=== PATIENT | male | born 1970 | race Caucasian/White ===

== ENCOUNTER 2024-12-09 17:09 | Inpatient (IN) | payer OTHER, SELFPAY ==
[2024-12-09] VITALS (17 sets, daily range): BP systolic 101–156; BP diastolic 75–98; PULSE 63–85; TEMP 36.4–36.9; O2SAT 95–100; BMI 30.4; BMI 30.9
--- NOTE | 2024-12-09 17:17 | XR_ITS ---
[facility] [place] [id number] Patient Name: MARLENY PATRICK MRN: [id number] date: 1970 Sex: M Assigned Patient Location: ED.MAIN Current Patient Location: ED.MAIN Accession/Order Number: [id number] Exam Date: 12/09/2024 17:48 Report Date: 12/09/2024 17:50 At the request of: TRACI WELLS MD Procedure: XR chest 1V Plain film chest Single view HISTORY: Shortness of breath COMPARISON: None FINDINGS: SUPPORT DEVICES: None POSTSURGICAL CHANGES: None HEART: Within normal limits PULMONARY JESUS MANUEL: Within normal limits MEDIASTINUM: Unremarkable LUNGS AND PLEURA: No acute lung process, pleural effusion or pneumothorax identified. BONY STRUCTURES: Intact ADDITIONAL FINDINGS None XR/XR chest 1V IMPRESSION: No acute process. Impression dictated by: Magnus Hills M.D. 12/09/2024 5:50 PM Dictation [facility] Electron[facility] authenticated by: [id number] Y Date: 12/09/2024 17:50
--- NOTE | 2024-12-09 17:17 | ECG_ITS ---
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 Measurements Intervals [place] Rate: 82 P: 46 LA: 130 QRS: 51 QRSD: 78 T: 59 QT: 370 QTc: 408 Interpretive Statements 1100 Sinus rhythm 9110 normal ECG No previous ECG available for comparison Electronically Signed On 12-10-2024 19:25:18 EDT by JANET HAMMOND M.D.
--- NOTE | 2024-12-09 17:18 | ED.GENADUL1 ---
HPI HPI - General Adult General Chief complaint: Shortness of Breath/Dyspnea Stated complaint: SOB Time Seen by Provider: 12/09/24 17:10 History of Present Illness HPI narrative: 54-year-old male presented to the emergency department for generalized weakness. His symptoms started 2 hours ago. He was outside mowing in the hot environment. He had drink a glass of water while mowing and then he drank a glass of water afterwards. His tried to give him some Propel but he was having trouble drinking it. He does not complain of any localized weakness or headache. No vomiting. Related Data Home Medications ?Medication ?Instructions ?Recorded ?Confirmed celecoxib 200 mg capsule 200 mg PO Q24H 12/09/24 12/09/24 gabapentin 300 mg capsule 600 mg PO DAILY 12/09/24 12/09/24 losartan 50 mg tablet 50 mg PO DAILY 12/09/24 12/09/24 pantoprazole 40 mg tablet,delayed 40 mg PO DAILY 12/09/24 12/09/24 release secukinumab 150 mg/mL subcutaneous mg subcut 12/09/24 pen injector (Cosentyx Pen 300 mg/2 pens () Allergies Allergy/AdvReac Type Severity Reaction Status Date / Time erythromycin base Allergy Unknown Verified 12/09/24 17:16 Penicillins Allergy Unknown Verified 12/09/24 17:16 Review of Systems ROS Narrative A ten point review of systems is negative except as noted above. PFSH PFSH Social History Little interest or pleasure in doing things: not at all Feeling down, depressed, or hopeless: not at all Exam Narrative Exam Narrative: Nurses note and vital signs reviewed and patient is not hypoxic. General: The patient appears weak. His face is mildly flushed. Skin: Warm, dry, no pallor noted. There is no rash noted. Head: Normocephalic, atraumatic Eye: Normal conjunctiva, no drainage Ears, Nose, Mouth, and Throat: oral mucosa is mildly dry. Nares patent. Cardiovascular: Regular Rate and Rhythm Respiratory: Patient is in no distress, no accessory muscle use, lungs are clear to auscultation, no wheezing, rales or rhonchi Back: non-tender GI: Soft and nontender Musculoskeletal: The patient has no evidence of calf tenderness, no pitting edema, symmetrical pulses noted bilaterally Neurological: A&O x4, normal speech; upper and lower extremity strength is 4 out of 5 and symmetric in all muscle groups. Cranial nerves II through XII intact Psychiatric: Cooperative Constitutional Vital Signs, click to edit/add: Last Vital Signs Temp 98.5 F 12/09/24 17:19 Pulse 72 12/09/24 17:50 Resp 16 12/09/24 17:50 BP 124/79 12/09/24 17:46 Pulse Ox 99 12/09/24 17:50 O2 Del Method Room Air 12/09/24 17:19 Course Vital Signs Vital signs: Vital Signs Pulse Rate 80 12/09/24 17:14 Respiratory Rate 22 H 12/09/24 17:14 Pulse Oximetry 100 12/09/24 17:14 Temperature 98.5 F 12/09/24 17:19 Pulse Rate 72 12/09/24 17:50 Respiratory Rate 16 12/09/24 17:50 Blood Pressure 124/79 12/09/24 17:46 Pulse Oximetry 99 12/09/24 17:50 Oxygen Delivery Method Room Air 12/09/24 17:19 Medical Decision Making [facility] Narrative Medical decision making narrative: The patient was found to be in rhabdomyolysis with mild acute kidney injury and hyperkalemia at 6.4. He was given IV fluids and he was also given D50 and insulin for the hyperkalemia. EKG, showed no acute findings. He is feeling somewhat better. He has not febrile and he is not tachycardic or hypotensive and is being admitted. Treatment diagnosis and disposition were discussed with the patient and his . Differential Diagnosis Differential Diagnosis: Heat exhaustion, dehydration, acute kidney injury Lab Data Lab results reviewed: Yes I reviewed the patient's lab results Labs: Lab Results 12/09/24 12/09/24 Range/Units 17:24 17:27 WBC 18.3 H (4.0-11.0) 10^3/uL RBC 4.91 (4.70-6.10) 10^6/uL Hgb 15.9 (14.0-18.0) g/dL Hct 44.3 (42.0-54.0) % MCV 90.2 (80.0-94.0) fL MCH 32.4 (25.9-34.0) pg MCHC 35.9 H (29.9-35.2) g/dL RDW 12.4 (11.0-15.0) % Plt Count 261 (150-450) 10^3/uL MPV 10.7 (9.5-13.5) fL Neut % (Auto) 80.9 H (43.0-75.0) % Lymph % (Auto) 13.7 L (20.5-60.0) % [place] % (Auto) 4.4 (1.7-12.0) % Eos % (Auto) 0.2 L (0.9-7.0) % Baso % (Auto) 0.3 (0.2-2.0) % Neut # (Auto) 14.8 H (1.4-6.5) 10^3/uL Lymph # (Auto) 2.5 (1.2-3.8) 10^3/uL [place] # (Auto) 0.8 (0.3-0.8) 10^3/uL Eos # (Auto) 0.0 (0.0-0.7) 10^3/uL Baso # (Auto) 0.1 (0.0-0.1) 10^3/uL Abs Immat Gran (auto) 0.10 H (0.00-0.03) 10^3/uL Imm/Tot Granulo (auto) 0.5 (0.0-0.5) % Sodium 136 (136-145) mmol/L Potassium 6.4 H* (3.5-5.1) mmol/L Chloride 96 L (98-107) mmol/L Carbon Dioxide 22.3 (21.0-32.0) mmol/L Anion Gap 24.1 BUN 26.0 H (7.0-18.0) mg/dL Creatinine 2.50 H (0.70-1.30) mg/dL Est GFR ( Amer) 33 L (>=60 mL/min/1.73m^2) Est GFR (Non-Af Amer) 27 L (>=60 mL/min/1.73m^2) BUN/Creatinine Ratio 10.4 Glucose 180 H (74-106) mg/dL Calcium 10.6 H (8.5-10.1) mg/dL Total Creatine Kinase 406 H* (39-308) U/L Myoglobin 563 H* (16-96) ng/mL POC Glucose 173 H (74-106) mg/dL Imaging Data Chest x-ray: Radiologist's impression: ITS Impressions Chest X-Ray 12/09/24 17:17 IMPRESSION: No acute process. Impression dictated by: Magnus Hills M.D. 12/09/2024 5:50 PM Dictation Location[facility] Electronically authenticated by: [id number] Y Date: 12/09/2024 17:50 ECG Data Attestation: I personally reviewed and interpreted this ECG as follows: (EKG on my interpretation shows sinus rhythm with rate of 82 and no acute change) Critical Care Time Critical Care Time Critical Care Time: Yes Total Critical Care Time: 35 Attestation: Due to the high probability of sudden and clinically significant deterioration in the patient's condition he/she required the highest level of my preparedness to intervene urgently I provided critical care time including documentation time, medication orders and management, reevaluation, vital sign assessment, ordering and reviewing of lab tests, ordering and reviewing of x-ray studies, and admission orders. Aggregate critical care time is 35 minutes including only time during which I was engaged in work directly related to his/her care and did not include time spent treating other patients simultaneously. Discharge Plan Discharge Chief Complaint: Shortness of Breath/Dyspnea Clinical Impression: Rhabdomyolysis, Acute kidney injury, Hyperkalemia, Heat exhaustion Patient Disposition: Admitted As Inpatient Time of Disposition Decision: 18:08 Condition: Fair
[2024-12-09] MEDS: 0.9 % SODIUM CHLORIDE 1,000 ML 1000 ML IV ×2 (17:20→18:18)
[2024-12-09 17:34] LABS: Hematocrit 44.3 % (42.0-54.0); Hemoglobin 15.9 g/dL (14.0-18.0); Immature Granulocytes Abs Auto 0.10 10^3/uL (0.00-0.03); Immature Granulocytes Pct Auto 0.5 % (0.0-0.5); Lymphocytes Absolute Auto 2.5 10^3/uL (1.2-3.8); Mean Corpuscular HGB Conc 35.9 g/dL (29.9-35.2); Mean Corpuscular Hemoglobin 32.4 pg (25.9-34.0); Mean Corpuscular Volume 90.2 fL (80.0-94.0); Platelet Count 261 10^3/uL (150-450); Red Blood Count 4.91 10^6/uL (4.70-6.10); White Blood Count 18.3 10^3/uL (4.0-11.0)
[2024-12-09 17:55] LABS: Anion Gap 24.1; Blood Urea Nitrogen 26.0 mg/dL (7.0-18.0); Calcium 10.6 mg/dL (8.5-10.1); Carbon Dioxide 22.3 mmol/L (21.0-32.0); Chloride 96 mmol/L (98-107); Estimated GFR (African America 33 (>=60 mL/min/1.73m^2); Estimated GFR (Non-African Ame 27 (>=60 mL/min/1.73m^2); Glucose 180 mg/dL (74-106); Sodium 136 mmol/L (136-145)
[2024-12-09 17:58] LABS: Creatine Kinase 406 U/L (39-308); Potassium 6.4 mmol/L (3.5-5.1)
[2024-12-09] MEDS: DEXTROSE 50 %-WATER 25 GM/50 ML SYRINGE IV (18:16)
[2024-12-09] MEDS: INSULIN REGULAR, HUMAN (100 UNIT/ML) 10 ML MDV 10 UNIT IV (18:17)
[2024-12-09 19:11] LABS: Alanine Aminotransferase 47 U/L (16-63); Albumin Globulin Ratio 1.2; Albumin Level 5.3 g/dL (3.4-5.0); Alkaline Phosphatase 74 U/L (46-116); Aspartate Amino Transferase 43 U/L (15-37); Globulin 4.6 g/dL; Total Protein 9.9 g/dL (6.4-8.2)
[2024-12-09] MEDS: CALCIUM GLUC IN NACL, ISO-OSM 1 GM/50 ML PLAST..BAG IV (20:14)
[2024-12-09] MEDS: 0.9 % SODIUM CHLORIDE 1,000 ML 125 ML IV (20:15)
[2024-12-09] MEDS: ENOXAPARIN SODIUM 30 MG/0.3 ML SYRINGE SUBQ (20:15)
[2024-12-09] MEDS: SODIUM ZIRCONIUM CYCLOSILICATE 10 GM POWD.PACK PO (20:16)
[2024-12-09 21:28] LABS: Glucose Urine UA NEGATIVE (NEGATIVE)
[2024-12-09 21:44] LABS: Cast Seen? NONE SEEN #/LPF (NONE SEEN); Crystals Seen? None Seen #/HPF (None Seen); Urine Culture Indicated NO
[2024-12-09 21:44] LABS: Potassium 4.0 mmol/L (3.5-5.1)
[2024-12-10] VITALS (8 sets, daily range): BP systolic 120–142; BP diastolic 71–85; PULSE 59–74; TEMP 36.6–37; O2SAT 94–98
[2024-12-10] MEDS: 0.9 % SODIUM CHLORIDE 1,000 ML 125 ML IV (04:54)
[2024-12-10 05:49] LABS: Hematocrit 36.9 % (42.0-54.0); Hemoglobin 12.7 g/dL (14.0-18.0); Immature Granulocytes Abs Auto 0.02 10^3/uL (0.00-0.03); Immature Granulocytes Pct Auto 0.2 % (0.0-0.5); Lymphocytes Absolute Auto 2.7 10^3/uL (1.2-3.8); Mean Corpuscular HGB Conc 34.4 g/dL (29.9-35.2); Mean Corpuscular Hemoglobin 31.9 pg (25.9-34.0); Mean Corpuscular Volume 92.7 fL (80.0-94.0); Platelet Count 142 10^3/uL (150-450); Red Blood Count 3.98 10^6/uL (4.70-6.10); White Blood Count 10.5 10^3/uL (4.0-11.0)
[2024-12-10 06:08] LABS: Anion Gap 15.1; Blood Urea Nitrogen 19.0 mg/dL (7.0-18.0); Calcium 8.8 mg/dL (8.5-10.1); Carbon Dioxide 24.1 mmol/L (21.0-32.0); Chloride 106 mmol/L (98-107); Estimated GFR (African America >60 (>=60 mL/min/1.73m^2); Estimated GFR (Non-African Ame >60 (>=60 mL/min/1.73m^2); Glucose 84 mg/dL (74-106); Potassium 4.2 mmol/L (3.5-5.1); Sodium 141 mmol/L (136-145)
--- NOTE | 2024-12-10 08:00 | ECG_ITS ---
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 Measurements Intervals [place] Rate: 58 P: 22 SC: 151 QRS: 28 QRSD: 88 T: 24 QT: 441 QTc: 435 Interpretive Statements SINUS BRADYCARDIA POSSIBLE RIGHT VENTRICULAR CONDUCTION DELAY [RSR (QR) IN V1/V2] WARNING: DATA QUALITY MAY AFFECT INTERPRETATION Compared to ECG 12/09/2024 17:14:32 Sinus rhythm no longer present Electronically Signed On 12-10-2024 19:30:20 EDT by JANET HAMMOND M.D.
[2024-12-10 08:55] LABS: Creatine Kinase 332 U/L (39-308)
--- NOTE | 2024-12-10 09:16 | PM.HP ---
HPI H&P: HPI History of Present Illness Chief complaint: SOB, RHABDOMYOLYSIS, CLINT, HYPERKALEMIA, HEAT EXHAU Narrative: Mr. Lane is a 54-year-old gentleman with a history of hypertension and ankylosing spondylitis. He is on Celebrex and losartan. Yesterday, the patient spent about an hour and half in the heat mowing his son yard. Subsequently he felt sick. He reported having muscle ache and cramping. He reported having dyspnea sensation. He could not focus or settle down. He was brought to the emergency room where he was found to have significant kidney failure. Elevation of the CPK. Patient denies any chest pain. No abdominal pain. No nausea or vomiting. Overnight the patient improved this morning the patient is back to baseline state according to him and requesting to be discharged home. No hematemesis or melena. 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 (ICD-10) Spondylitis ?M46.90 - Unspecified inflammatory spondylopathy, site unspecified (ICD-10) Bowel obstruction ?K56.609 - Unspecified intestinal obstruction, unspecified as to partial versus complete obstruction (ICD-10) 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 - Hirschsprung's disease (ICD-10) 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 - Other specified congenital malformation syndromes, not elsewhere classified (ICD-10) ?Q43.1 - Hirschsprung's disease (ICD-10) ?C47.9 - Malignant neoplasm of peripheral nerves and autonomic nervous system, unspecified (ICD-10) Surgical History (Updated 12/09/24 @ 19:37 by Erica Melvin) Hx of spinal surgery ?Z98.890 - Other specified postprocedural states (ICD-10) Family History (Updated 12/09/24 @ 19:39 by Erica Melvin) Other Congestive heart failure Diabetes Hypertension Obesity Social History Highest level of school completed/degree received: Master's degree Little interest or pleasure in doing things: not at all Feeling down, depressed, or hopeless: not at all Meds Home Medications and Allergies Home Medications ?Medication ?Instructions ?Recorded ?Confirmed ?Type celecoxib 200 mg capsule 200 mg PO Q12H 12/09/24 12/09/24 History Held on 12/10/24. Instructions: Resume on 12/14/24. Resume taking it on 12/14 on an as-needed basis only. No more than 1 pill every day or every other day. gabapentin 300 mg capsule 300 mg PO TID 12/09/24 12/09/24 History losartan 50 mg tablet 50 mg PO DAILY 12/09/24 12/09/24 History pantoprazole 40 mg tablet,delayed 40 mg PO .ACB 12/09/24 12/09/24 History release secukinumab 150 mg/mL subcutaneous 300 mg subcut .[id number] 12/09/24 12/09/24 History pen injector (Cosentyx Pen 300 mg/2 pens () Allergies Allergy/AdvReac Type Severity Reaction Status Date / Time erythromycin base Allergy Unknown Verified 12/09/24 17:16 Penicillins Allergy Unknown Verified 12/09/24 17:16 Exam Narrative Exam Narrative: [pt is awake and alert. oriented to place, time and person HEENT: [place] conjunctiva and NL buccal mucosa Neck: Supple, no tenderness Endocrine: No Thyromegaly. Vascular: No JVD or carotid bruit. Lymphatic: No cervical lymphadenopathy. Chest: CTA no DTP. Heart RRR, no extra sound or murmur. Abd: Soft, no tenderness, no rebound and no rigidity. Increase abd girth therefore clinically I could not exclude the possibility of intra abd mass or organomegaly. LE: No cyanosis or clubbing, no varices or edema. Neuro: A A O. Nl speech, comprehension and attention. Nl and symetrical motor and tone examination through out. []] Constitutional Vital Signs, click to edit/add: Last Vital Signs Temp 98.6 F 12/10/24 07:13 Pulse 71 12/10/24 07:50 Resp 18 12/10/24 07:13 BP 142/85 H 12/10/24 07:13 Pulse Ox 98 12/10/24 07:13 O2 Del Method Room Air 12/10/24 07:13 Results Labs Labs: Short CBC 12/09/24 12/10/24 Range/Units 17:24 04:45 WBC 18.3 H 10.5 (4.0-11.0) 10^3/uL Hgb 15.9 12.7 L (14.0-18.0) g/dL Hct 44.3 36.9 L (42.0-54.0) % Plt Count 261 142 L (150-450) 10^3/uL BMP 12/09/24 12/09/24 12/10/24 17:24 21:09 04:45 Sodium 136 141 Potassium 6.4 H* 4.0 4.2 Chloride 96 L 106 Carbon Dioxide 22.3 24.1 BUN 26.0 H 19.0 H Creatinine 2.50 H 1.01 Glucose 180 H 84 Calcium 10.6 H 8.8 Cardiac Enzymes 12/09/24 12/10/24 Range/Units 17:24 04:45 Total Creatine Kinase 406 H* 332 H* (39-308) U/L Liver Function 12/09/24 Range/Units 17:24 Total Bilirubin 1.3 H (0.2-1.0) mg/dL Direct Bilirubin 0.2 (0.0-0.2) mg/dL AST 43 H (15-37) U/L ALT 47 (16-63) U/L Alkaline Phosphatase 74 (46-116) U/L Albumin 5.3 H (3.4-5.0) g/dL Urine 12/09/24 Range/Units 21:17 Urine Color Lt. yellow (YELLOW) Urine Clarity Clear (CLEAR) Urine pH 6.0 (5.0-9.0) Ur Specific [place] <=1.005 A (1.005-1.025) Urine Protein Negative (NEG/TRACE) mg/dL Urine Glucose (UA) Negative (NEGATIVE) mg/dL Assessment and Plan Assessment and Plan (1) Heat exhaustion: (2) Hyperkalemia: (3) Acute kidney injury: (4) Rhabdomyolysis: (5) SIRS (systemic inflammatory response syndrome): Plan Patient was started on IV fluid infusion. Patient also had received the cocktail for hyperkalemia including Lokelma, insulin and calcium gluconate. Complete resolution of hyperkalemia and acute kidney failure. CPK is trending down. Troponin is negative EKG does not show ST elevation or depression. White count is back to normal. Patient is feeling great and requesting to be discharged home. His exam is unremarkable. Patient will follow-up with his primary care doctor tomorrow. He was given instructions to avoid heat exposure. He was instructed not to resume taking Celebrex for a few days then cut down on dose and frequency. He was taken 200 mg twice a day which may be high dose for him. I instructed him not to take more than 1 or 2 on an as-needed basis. Patient has few medical issues as listed above and others that are not listed. All appear to be stable. Patient is feeling great. He is requesting to be discharged home. Is back to baseline state. He is asymptomatic. At this time, I do not have any clear or strong clinical justification to extend inpatient hospitalization. Patient however may require monitoring as well as additional work-up, investigation and therapeutic intervention that could take place from this point on post discharge. That is to prevent relapse, decompensation, rehospitalization and other medical implications. I instructed patient to ask her primary care doctor to obtain [facility] record entirely to address abnormalities seen on labs and imaging that I have and have not addressed during this hospitalization, follow-up on pending blood work, imaging and pathology is if available and to follow-up on needed medical care in the outpatient setting.
--- NOTE | 2024-12-10 09:21 | P.DS_ITS ---
DS: Providers Provider Date of admission: 12/09/24 18:45 Primary care physician: ALFRED MEJÍA DS: Diagnosis Discharge Diagnosis (1) Heat exhaustion: (2) Hyperkalemia: (3) Acute kidney injury: (4) Rhabdomyolysis: (5) SIRS (systemic inflammatory response syndrome): Plan As listed above and others that are not listed DS: Summary Hospital Course Hospital Course: Mr. Brown is a 54-year-old gentleman who spent an hour and a half at least and his son and he ate yesterday morning his son's yard. He came in not feeling well and was found to have the following Acute kidney failure Dehydration with volume loss SIRS Hyperkalemia Mild rhabdomyolysis Heat exposure Patient was started on IV fluid infusion. Patient also had received the cocktail for hyperkalemia including Lokelma, insulin and calcium gluconate. Complete resolution of hyperkalemia and acute kidney failure. CPK is trending down. Troponin is negative EKG does not show ST elevation or depression. White count is back to normal. Patient is feeling great and requesting to be discharged home. His exam is unremarkable. Patient will follow-up with his primary care doctor tomorrow. He was given instructions to avoid heat exposure. He was instructed not to resume taking Celebrex for a few days then cut down on dose and frequency. He was taken 200 mg twice a day which may be high dose for him. I instructed him not to take more than 1 or 2 on an as-needed basis. Patient has few medical issues as listed above and others that are not listed. All appear to be stable. Patient is feeling great. He is requesting to be discharged home. Is back to baseline state. He is asymptomatic. At this time, I do not have any clear or strong clinical justification to extend inpatient hospitalization. Patient however may require monitoring as well as additional work-up, investigation and therapeutic intervention that could take place from this point on post discharge. That is to prevent relapse, decompensation, rehospitalization and other medical implications. I instructed patient to ask her primary care doctor to obtain [facility] record entirely to address abnormalities seen on labs and imaging that I have and have not addressed during this hospitalization, follow-up on pending blood work, imaging and pathology is if available and to follow-up on needed medical care in the outpatient setting. Time Spent with Patient Time attestation: Total time spent providing and/or coordinating discharge services: Time spent: greater than 30 minutes Exam Constitutional Vital Signs, click to edit/add: Last Vital Signs Temp 98.6 F 12/10/24 07:13 Pulse 71 12/10/24 07:50 Resp 18 12/10/24 07:13 BP 142/85 H 12/10/24 07:13 Pulse Ox 98 12/10/24 07:13 O2 Del Method Room Air 12/10/24 07:13 DS: Data Data Completed and Pending Labs on day of discharge: Labs from last 24 hours 12/10/24 12/09/24 12/09/24 04:45 21:17 21:09 WBC 10.5 RBC 3.98 L Hgb 12.7 L Hct 36.9 L MCV 92.7 MCH 31.9 MCHC 34.4 RDW 12.8 Plt Count 142 L MPV 11.0 Neut % (Auto) 62.4 Lymph % (Auto) 25.3 [place] % (Auto) 11.2 Eos % (Auto) 0.6 L Baso % (Auto) 0.3 Neut # (Auto) 6.6 H Lymph # (Auto) 2.7 [place] # (Auto) 1.2 H Eos # (Auto) 0.1 Baso # (Auto) 0.0 Abs Immat Gran (auto) 0.02 Imm/Tot Granulo (auto) 0.2 Sodium 141 Potassium 4.2 4.0 Chloride 106 Carbon Dioxide 24.1 Anion Gap 15.1 BUN 19.0 H Creatinine 1.01 Est GFR ( Amer) >60 Est GFR (Non-Af Amer) >60 BUN/Creatinine Ratio 18.8 Glucose 84 Estimat Average Glucose Hemoglobin A1c Calcium 8.8 Total Bilirubin Direct Bilirubin AST ALT Alkaline Phosphatase Total Creatine Kinase 332 H* Myoglobin Troponin I High Sens Total Protein Albumin Globulin Albumin/Globulin Ratio Urine Color Lt. yellow Urine Clarity Clear Urine pH 6.0 Ur Specific [place] <=1.005 A Urine Protein Negative Urine Glucose (UA) Negative Urine Ketones 15 A Urine Occult Blood Negative Urine Nitrite Negative Urine Bilirubin Negative Urine Urobilinogen 0.2 Ur Leukocyte Esterase Negative Urine RBC None seen Urine WBC 0-2 A Ur Squamous Epith Cells None seen Urine Crystals None seen Urine Bacteria None seen Urine Casts None seen Urine Mucus None seen Ur Culture Indicated? No POC Glucose 12/09/24 12/09/24 17:27 17:24 WBC 18.3 H RBC 4.91 Hgb 15.9 Hct 44.3 MCV 90.2 MCH 32.4 MCHC 35.9 H RDW 12.4 Plt Count 261 MPV 10.7 Neut % (Auto) 80.9 H Lymph % (Auto) 13.7 L [place] % (Auto) 4.4 Eos % (Auto) 0.2 L Baso % (Auto) 0.3 Neut # (Auto) 14.8 H Lymph # (Auto) 2.5 [place] # (Auto) 0.8 Eos # (Auto) 0.0 Baso # (Auto) 0.1 Abs Immat Gran (auto) 0.10 H Imm/Tot Granulo (auto) 0.5 Sodium 136 Potassium 6.4 H* Chloride 96 L Carbon Dioxide 22.3 Anion Gap 24.1 BUN 26.0 H Creatinine 2.50 H Est GFR ( Amer) 33 L Est GFR (Non-Af Amer) 27 L BUN/Creatinine Ratio 10.4 Glucose 180 H Estimat Average Glucose 105 Hemoglobin A1c 5.3 Calcium 10.6 H Total Bilirubin 1.3 H Direct Bilirubin 0.2 AST 43 H ALT 47 Alkaline Phosphatase 74 Total Creatine Kinase 406 H* Myoglobin 563 H* Troponin I High Sens 13.8 Total Protein 9.9 H Albumin 5.3 H Globulin 4.6 Albumin/Globulin Ratio 1.2 Urine Color Urine Clarity Urine pH Ur Specific [place] Urine Protein Urine Glucose (UA) Urine Ketones Urine Occult Blood Urine Nitrite Urine Bilirubin Urine Urobilinogen Ur Leukocyte Esterase Urine RBC Urine WBC Ur Squamous Epith Cells Urine Crystals Urine Bacteria Urine Casts Urine Mucus Ur Culture Indicated? POC Glucose 173 H Discharge Plan Discharge Disposition: Home, Self-Care Condition: Fair Discharge Medications: Continued gabapentin 300 mg capsule 300 mg PO TID Rx Instructions: MAY ADD TO 600 MG CAP losartan 50 mg tablet 50 mg PO DAILY pantoprazole 40 mg tablet,delayed release (DR/EC) 40 mg PO .ACB Cosentyx Pen (2 Pens) 150 mg/mL pen injector 300 mg SUBCUT .[id number] Held celecoxib 200 mg capsule 200 mg PO Q12H Hold Instructions: Resume on 12/14/24. Resume taking it on 12/14 on an as- needed basis only. No more than 1 pill every day or every other day. Print Language: Libyan Patient Instructions: Acute Kidney Injury (DC), Heat Exhaustion (GEN), Rhabdomyolysis (DC), Hyperkalemia (DC) Activity Restrictions/Additional Instructions: I may not have addressed or treated all of your medical illnesses or the abnormal blood work or imaging studies during this hospitalization. Please ask your primary care provider to obtain [facility] records entirely to follow up on all of the abnormal physical, laboratory, and imaging findings that I have not addressed. Please return back to the emergency room or seek medical attention if your symptoms worsen or return. Discharging you from [facility] does not mean that your medical care ends here and now. You may still need additional monitoring, work up, investigation, and treatment plan to be handled from this point on by out patient providers including your primary care provider and specialists. For any medication question, please contact your retail pharmacist or your primary care provider. Thank you. Forms: Portal Instructions Follow Up Appointments: Keep already scheduled appointment with Dr Alfred Mejía for 12/11 at 10:30
--- NOTE | 2024-12-11 10:32 | CM.DCFOLLOWU ---
1st attempt 12/11/24, no answer
--- NOTE | 2024-12-14 14:45 | CM.DCFOLLOWU ---
Person spoke with:patient How are you feeling?well How is your pain?none Did you understand your discharge instructions?yes Do you have any questions about your discharge instructions?no Were you given any prescriptions at discharge?no Were you able to get your prescriptions filled?N/A Do you understand how to take your medications as ordered?yes Do you have any questions about your follow up appointment and do you plan to keep your follow up appointment? no questions, had follow up on 12/11 with PCP Is there anything else that you would like to discuss? no Questions/Comments/Concerns/Other:none
== END 2024-12-10 10:18 | disposition home or self-care (01) | DRG 923 ==
LOC: ER 18:32 → MS 18:50
PROVIDERS: Admitting Provider Internal Medicine; Emergency Provider Emergency Medicine; Family Provider Family Medicine; PCP Family Medicine; Visit Provider Internal Medicine
DX: T67.4XXA Heat exhaustion due to salt depletion, initial encounter (principal); N17.9 Acute kidney failure, unspecified; M62.82 Rhabdomyolysis; Q43.1 Hirschsprung's disease; R65.10 Systemic inflammatory response syndrome (SIRS) of non-infectious origin without acute organ dysfunction; Y93.H2 Activity, gardening and landscaping; E87.5 Hyperkalemia; M06.9 Rheumatoid arthritis, unspecified; X30.XXXA Exposure to excessive natural heat, initial encounter; Z85.89 Personal history of malignant neoplasm of other organs and systems; Z82.49 Family history of ischemic heart disease and other diseases of the circulatory system
CPT/HCPCS: 36415; 71045; 80048; 80076; 81001; 82550; 82948; 83036; 83874; 84132; 84484; 85025; 93005; 96360; 99285; J0613; J1650; J1817

== ENCOUNTER 2024-12-28 13:11 | Emergency (ER) | payer OTHER, SELFPAY ==
[2024-12-28 13:36] VITALS: BP 143/90; PULSE 81; TEMP 36.4; O2SAT 100; BMI 31.0
--- NOTE | 2024-12-28 13:46 | CT_ITS ---
The [address] [address] Patient Name: MARLENY PATRICK MRN: [id number] date: 1970 Sex: M Assigned Patient Location: ER Current Patient Location: Accession/Order Number: [id number] Exam Date: 12/28/2024 15:00 Report Date: 12/28/2024 16:35 At the request of: SONIDO CAMARENA Procedure: CT hip LT wo con CT CHEST, ABDOMEN AND PELVIS WITHOUT INTRAVENOUS CONTRAST: CT of the lumbar spine without IV contrast. CT of the left hip without IV contrast. CLINICAL HISTORY: Fall 4 ft off ladder COMPARISON: None TECHNIQUE: TECHNIQUE: Spiral images were obtained through the chest, abdomen and pelvis without the administration of IV contrast. Additional CT imaging of the lumbar spine and left hip was also obtained. This CT exam was performed using one or more following dose reduction techniques: Automated exposure control, adjustment of the mA and/or kV according to patient size, or use of iterative reconstruction technique. FINDINGS: CT chest: Mediastinum:Thoracic aorta appears normal in caliber. Pulmonary trunk appears nondilated. No pleural effusion or lymphadenopathy. The esophagus is grossly unremarkable. Lungs:No consolidation pneumothorax or pleural effusion. Dependent atelectatic changes. Soft tissues/Bones: No focal soft tissue abnormality. Osseous structures demonstrate degenerative change. No acute bony process is noted. CT abdomen and pelvis: Organs:Suboptimal evaluation due to lack of IV contrast. Liver gallbladder spleen pancreas adrenal glands kidneys and aorta all appear unremarkable.[ GI: Stomach is grossly unremarkable. Small bowel appears nondilated. Right hemicolectomy changes.[ Pelvis:[Urinary bladder and prostate gland appear unremarkable.] Peritoneum/Retroperitoneum:No free air or free fluid or lymphadenopathy.[ Abd wall/Bones:Abdominal wall demonstrates no acute findings. No contusion. Osseous structures demonstrate degenerative change. Lumbar spine: No fracture. Posterior hardware fixation L4-L5 without hardware complication. Scattered endplate degenerative changes without significant disc height loss. Transverse processes appear intact. SI joints demonstrate degenerative change. No paraspinal mass. Left hip: Mild degenerative changes of the left hip. No fracture is seen. No focal soft tissue abnormality.[ CT/CT abdomen pelvis wo con IMPRESSION: No acute findings involving the chest, abdomen, pelvis, lumbar spine or left hip. Impression dictated by: Derick Quiñones Jr., D.O. 12/28/2024 4:35 PM Dictation Location: [place] [address] Electronically authenticated by: [id number] Y Date: 12/28/2024 16:35
--- NOTE | 2024-12-28 13:46 | CT_ITS ---
The [address] [address] Patient Name: MARLENY PATRICK MRN: [id number] date: 1970 Sex: M Assigned Patient Location: ER Current Patient Location: ER Accession/Order Number: [id number] Exam Date: 12/28/2024 15:00 Report Date: 12/28/2024 15:21 At the request of: SONIDO CAMARENA Procedure: CT head/brain wo con CT BRAIN WITHOUT CONTRAST: CLINICAL HISTORY: Fall 4 ft off ladder COMPARISON: None TECHNIQUE: Contiguous axial unenhanced images were obtained through the brain. This CT exam was performed using one or more following dose reduction techniques: Automated exposure control, adjustment of the mA and/or kV according to patient size, or use of iterative reconstruction technique. FINDINGS: There is no evidence of midline shift, intra or extra-axial fluid collection, hemorrhage or CT evidence of stroke. Posterior fossa appears unremarkable. Visualized intraorbital contents demonstrate no acute findings. Visualized paranasal sinuses are clear. The surrounding soft tissues are normal. CT/CT head/brain wo con IMPRESSION: NO ACUTE INTRACRANIAL ABNORMALITY. Impression dictated by: Derick Quiñones Jr., D.O. 12/28/2024 3:21 PM Dictation Location: [place] [address] Electronically authenticated by: [id number] Y Date: 12/28/2024 15:21
--- NOTE | 2024-12-28 13:46 | XR_ITS ---
The [place] [id number] Patient Name: MARLENY PATRICK MRN: [id number] date: 1970 Sex: M Assigned Patient Location: ER Current Patient Location: ER Accession/Order Number: [id number] Exam Date: 12/28/2024 15:00 Report Date: 12/28/2024 16:39 At the request of: SONIDO CAMARENA Procedure: XR shoulder RT min 2V RIGHT SHOULDER - - 3 views CLINICAL HISTORY: pain, fall COMPARISON: None FINDINGS: Mild degenerative changes involving the AC and glenohumeral joints. There is questionable chip fracture along the superior glenoid possibly remote. XR/XR shoulder RT min 2V IMPRESSION: QUESTIONABLE CHIP FRACTURE ALONG THE SUPERIOR GLENOID POSSIBLY REMOTE. Impression dictated by: Chastity Berg Jr.OVladimir 12/28/2024 4:39 PM [facility]ictation Location[facility] Electron[facility] authenticated by: [id number] Y Date: 12/28/2024 16:39
--- NOTE | 2024-12-28 13:46 | CT_ITS ---
The [address] [address] Patient Name: MARLENY PATRICK MRN: [id number] date: 1970 Sex: M Assigned Patient Location: ER Current Patient Location: Accession/Order Number: [id number] Exam Date: 12/28/2024 15:00 Report Date: 12/28/2024 16:35 At the request of: SONIDO CAMARENA Procedure: CT hip LT wo con CT CHEST, ABDOMEN AND PELVIS WITHOUT INTRAVENOUS CONTRAST: CT of the lumbar spine without IV contrast. CT of the left hip without IV contrast. CLINICAL HISTORY: Fall 4 ft off ladder COMPARISON: None TECHNIQUE: TECHNIQUE: Spiral images were obtained through the chest, abdomen and pelvis without the administration of IV contrast. Additional CT imaging of the lumbar spine and left hip was also obtained. This CT exam was performed using one or more following dose reduction techniques: Automated exposure control, adjustment of the mA and/or kV according to patient size, or use of iterative reconstruction technique. FINDINGS: CT chest: Mediastinum:Thoracic aorta appears normal in caliber. Pulmonary trunk appears nondilated. No pleural effusion or lymphadenopathy. The esophagus is grossly unremarkable. Lungs:No consolidation pneumothorax or pleural effusion. Dependent atelectatic changes. Soft tissues/Bones: No focal soft tissue abnormality. Osseous structures demonstrate degenerative change. No acute bony process is noted. CT abdomen and pelvis: Organs:Suboptimal evaluation due to lack of IV contrast. Liver gallbladder spleen pancreas adrenal glands kidneys and aorta all appear unremarkable.[ GI: Stomach is grossly unremarkable. Small bowel appears nondilated. Right hemicolectomy changes.[ Pelvis:[Urinary bladder and prostate gland appear unremarkable.] Peritoneum/Retroperitoneum:No free air or free fluid or lymphadenopathy.[ Abd wall/Bones:Abdominal wall demonstrates no acute findings. No contusion. Osseous structures demonstrate degenerative change. Lumbar spine: No fracture. Posterior hardware fixation L4-L5 without hardware complication. Scattered endplate degenerative changes without significant disc height loss. Transverse processes appear intact. SI joints demonstrate degenerative change. No paraspinal mass. Left hip: Mild degenerative changes of the left hip. No fracture is seen. No focal soft tissue abnormality.[ CT/CT lumbar spine wo con IMPRESSION: No acute findings involving the chest, abdomen, pelvis, lumbar spine or left hip. Impression dictated by: Derick Quiñones Jr., D.O. 12/28/2024 4:35 PM Dictation Location: [facility] Electronically authenticated by: [id number] Y Date: 12/28/2024 16:35
--- NOTE | 2024-12-28 13:46 | CT_ITS ---
The [address] [address] Patient Name: MARLENY PATRICK MRN: [id number] date: 1970 Sex: M Assigned Patient Location: ER Current Patient Location: ER Accession/Order Number: [id number] Exam Date: 12/28/2024 15:00 Report Date: 12/28/2024 15:26 At the request of: SONIDO CAMARENA Procedure: CT cervical spine wo con CT CERVICAL SPINE WITHOUT CONTRAST WITH 3D RECONSTRUCTIONS: CLINICAL HISTORY: Fall 4 ft off ladder COMPARISON: None TECHNIQUE: Spiral axial unenhanced images were obtained through the cervical spine. Sagittal, coronal and 3D volume-rendered reconstructions were also reviewed. This CT exam was performed using one or more following dose reduction techniques: Automated exposure control, adjustment of the mA and/or kV according to patient size, or use of iterative reconstruction technique. FINDINGS: No fracture. Vertebral body and disc space heights appear maintained. Mild diffuse facet joint degenerative changes. No prevertebral soft tissue swelling. Visualized lung apices are clear. CT/CT cervical spine wo con IMPRESSION: NO CERVICAL SPINE FRACTURE Impression dictated by: Derick Quiñones Jr., D.O. 12/28/2024 3:26 PM Dictation Location: [place] [address] Electronically authenticated by: [id number] Y Date: 12/28/2024 15:26
--- NOTE | 2024-12-28 13:46 | CT_ITS ---
The [address] [address] Patient Name: MARLENY PATRICK MRN: [id number] date: 1970 Sex: M Assigned Patient Location: ER Current Patient Location: Accession/Order Number: [id number] Exam Date: 12/28/2024 15:00 Report Date: 12/28/2024 16:35 At the request of: SONIDO CAMARENA Procedure: CT hip LT wo con CT CHEST, ABDOMEN AND PELVIS WITHOUT INTRAVENOUS CONTRAST: CT of the lumbar spine without IV contrast. CT of the left hip without IV contrast. CLINICAL HISTORY: Fall 4 ft off ladder COMPARISON: None TECHNIQUE: TECHNIQUE: Spiral images were obtained through the chest, abdomen and pelvis without the administration of IV contrast. Additional CT imaging of the lumbar spine and left hip was also obtained. This CT exam was performed using one or more following dose reduction techniques: Automated exposure control, adjustment of the mA and/or kV according to patient size, or use of iterative reconstruction technique. FINDINGS: CT chest: Mediastinum:Thoracic aorta appears normal in caliber. Pulmonary trunk appears nondilated. No pleural effusion or lymphadenopathy. The esophagus is grossly unremarkable. Lungs:No consolidation pneumothorax or pleural effusion. Dependent atelectatic changes. Soft tissues/Bones: No focal soft tissue abnormality. Osseous structures demonstrate degenerative change. No acute bony process is noted. CT abdomen and pelvis: Organs:Suboptimal evaluation due to lack of IV contrast. Liver gallbladder spleen pancreas adrenal glands kidneys and aorta all appear unremarkable.[ GI: Stomach is grossly unremarkable. Small bowel appears nondilated. Right hemicolectomy changes.[ Pelvis:[Urinary bladder and prostate gland appear unremarkable.] Peritoneum/Retroperitoneum:No free air or free fluid or lymphadenopathy.[ Abd wall/Bones:Abdominal wall demonstrates no acute findings. No contusion. Osseous structures demonstrate degenerative change. Lumbar spine: No fracture. Posterior hardware fixation L4-L5 without hardware complication. Scattered endplate degenerative changes without significant disc height loss. Transverse processes appear intact. SI joints demonstrate degenerative change. No paraspinal mass. Left hip: Mild degenerative changes of the left hip. No fracture is seen. No focal soft tissue abnormality.[ CT/CT hip LT wo con IMPRESSION: No acute findings involving the chest, abdomen, pelvis, lumbar spine or left hip. Impression dictated by: Derick Quiñones Jr., D.O. 12/28/2024 4:35 PM Dictation Location: [facility]18 Electronically authenticated by: [id number] Y Date: 12/28/2024 16:35
--- NOTE | 2024-12-28 13:46 | CT_ITS ---
The [address] [address] Patient Name: MARLENY PATRICK MRN: [id number] date: 1970 Sex: M Assigned Patient Location: ER Current Patient Location: ER Accession/Order Number: [id number] Exam Date: 12/28/2024 15:00 Report Date: 12/28/2024 15:29 At the request of: SONIDO CAMARENA Procedure: CT thoracic spine wo con CT thoracic SPINE WITHOUT CONTRAST WITH 3D RECONSTRUCTIONS: CLINICAL HISTORY: pain, fall 4 ft off ladder COMPARISON: None TECHNIQUE: Spiral axial unenhanced images were obtained through the thoracic spine. Sagittal, coronal and 3D volume-rendered reconstructions were also reviewed. This CT exam was performed using one or more following dose reduction techniques: Automated exposure control, adjustment of the mA and/or kV according to patient size, or use of iterative reconstruction technique. FINDINGS: No fracture. Vertebral body heights appear maintained. Diffuse endplate degenerative changes. No paraspinal mass. Visualized lung parenchyma appears clear. CT/CT thoracic spine wo con IMPRESSION: NO ACUTE FRACTURE. Impression dictated by: Derick Quiñones Jr., D.O. 12/28/2024 3:29 PM Dictation Location: [place] [address] Electronically authenticated by: [id number] Y Date: 12/28/2024 15:29
--- NOTE | 2024-12-28 13:49 | ED.FALL1 ---
HPI HPI - Fall General Chief Complaint: Fall Stated Complaint: FELL OFF LADDER Time Seen by Provider: 12/28/24 13:40 Source: patient and family Mode of arrival: Wheelchair Limitations: no limitations History of Present Illness HPI Narrative: 11 year old male presents to the ED for pain to his mid and lower back, left hip, and right shoulder s/p fall off of a ladder today. States he fell approx 4 feet. This happened around 1200 today. Reports landing on his left side on the ladder. States his had struck concrete. Denies LOC, vision changes, N/V. Reports dizziness. Denies change in bowel and/or bladder control. Denies saddle anesthesia. Pt declined to get onto cart for evaluation. Pt declined c-collar. Related Data Home Medications ?Medication ?Instructions ?Recorded ?Confirmed celecoxib 200 mg capsule 200 mg PO Q12H 12/09/24 12/09/24 Held on 12/10/24. Instructions: Resume on 12/14/24. Resume taking it on 12/14 on an as-needed basis only. No more than 1 pill every day or every other day. gabapentin 300 mg capsule 300 mg PO TID 12/09/24 12/09/24 losartan 50 mg tablet 50 mg PO DAILY 12/09/24 12/09/24 pantoprazole 40 mg tablet,delayed 40 mg PO .ACB 12/09/24 12/09/24 release secukinumab 150 mg/mL subcutaneous 300 mg subcut .[id number] 12/09/24 12/09/24 pen injector (Cosentyx Pen 300 mg/2 pens () Previous Rx's ?Medication ?Instructions ?Recorded hydrocodone 5 mg-acetaminophen 325 1 tab PO Q8H PRN pain 4 days #12 12/28/24 mg tablet tabs tizanidine 2 mg capsule (Zanaflex) 2 mg PO Q8H PRN muscle spasticity 12/28/24 #12 caps Allergies Allergy/AdvReac Type Severity Reaction Status Date / Time erythromycin base Allergy Unknown Verified 12/28/24 13:36 Penicillins Allergy Unknown Verified 12/28/24 13:36 Opioid HPI Opioid Management Most Recent Pain and Opioid Data: Last ORT Total Score 0 12/09/24, 18:50 Last ORT Risk Category Low Risk 12/09/24, 18:50 PFS PFS Medical History (Updated 12/28/24 @ 18:19 by Prabha Irving) 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 (ICD-10) Spondylitis ?M46.90 - Unspecified inflammatory spondylopathy, site unspecified (ICD-10) Bowel obstruction ?K56.609 - Unspecified intestinal obstruction, unspecified as to partial versus complete obstruction (ICD-10) 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 - Hirschsprung's disease (ICD-10) 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 - Other specified congenital malformation syndromes, not elsewhere classified (ICD-10) ?Q43.1 - Hirschsprung's disease (ICD-10) ?C47.9 - Malignant neoplasm of peripheral nerves and autonomic nervous system, unspecified (ICD-10) Surgical History (Updated 12/09/24 @ 19:37 by Erica Melvin) Hx of spinal surgery ?Z98.890 - Other specified postprocedural states (ICD-10) Family History (Updated 12/09/24 @ 19:39 by Erica Melvin) Other Congestive heart failure Diabetes Hypertension Obesity Social History Highest level of school completed/degree received: Master's degree Little interest or pleasure in doing things: not at all Feeling down, depressed, or hopeless: not at all Exam Constitutional Vital Signs, click to edit/add: Last Vital Signs Temp 97.5 F L 12/28/24 13:36 Pulse 81 12/28/24 13:36 Resp 18 12/28/24 13:36 BP 143/90 H 12/28/24 13:36 Pulse Ox 100 12/28/24 13:36 O2 Del Method Room Air 12/28/24 13:36 HENMT Common normals: head/scalp atraumatic, external ears normal, moist oral mucous membranes and oropharynx normal Head and scalp: no Jimenez's sign and no raccoon eyes Mouth: lip normal Eye Common normals: PERRL, EOMs intact bilaterally, conjunctivae normal and no scleral icterus Neck & C-Spine Common normals: supple Cervical spine: no cervical spine tenderness, no paracervical muscle tenderness and no paracervical muscle spasm Chest Common normals: inspection of chest normal and palpation of chest normal Chest: symmetrical chest wall rise Respiratory Common normals: normal respiratory effort and no use of accessory muscles Effort & inspection: able to speak in complete sentences Cardio Common normals: regular rate and regular rhythm Peripheral pulses: radial pulses present and ulnar pulses present GI Common normals: soft to palpation and non-tender Back & Pelvis Thoracic spine/upper back: paraspinal muscle tenderness; no thoracic spinal tenderness Lumbar spine/lower back: normal to inspection, lumbar spinal tenderness and paraspinal muscle tenderness Other: Area of erythema to left mid back. Extremity Right upper extremity: wrist Right wrist: palpation (Tenderness) and ROM (Decreased due to pain) and hand and digits (Distal sensation intact. ) Other: Tenderness to left posterior and lateral hip areas. No deformity noted. Tenderness to right lateral shoulder. Full ROM to right shoulder, arm. Distal sensation intact. No obvious deformity noted to extremities. Denies tenderness to other areas of extremities. Neuro Common normals: oriented x3, CN's II-XII intact bilaterally, moves all extremities and no focal motor deficits Sensorium/orientation: awake and alert Speech: speech normal Course Vital Signs Vital signs: Vital Signs Temperature 97.5 F L 12/28/24 13:36 Pulse Rate 81 12/28/24 13:36 Respiratory Rate 18 12/28/24 13:36 Blood Pressure 143/90 H 12/28/24 13:36 Pulse Oximetry 100 12/28/24 13:36 Oxygen Delivery Method Room Air 12/28/24 13:36 Temperature 97.5 F L 12/28/24 13:36 Pulse Rate 81 12/28/24 13:36 Respiratory Rate 18 12/28/24 13:36 Blood Pressure 143/90 H 12/28/24 13:36 Pulse Oximetry 100 12/28/24 13:36 Oxygen Delivery Method Room Air 12/28/24 13:36 MDM - Fall MDM Narrative Medical decision making narrative: CT scans of the head, spine, chest, abdomen, and hip were completed and showed no acute findings. The patient developed pain to his right wrist during his visit. X-ray of the wrist was negative for acute findings. X-ray of the shoulder showed a questionable chip fracture along the superior glenoid which is possibly remote. Findings were discussed with the patient. He declined an arm sling. An karlene wrap was applied to the right wrist. The application was checked and was appropriate; the RUE remained NVI. Follow up with pcp and an orthopedist for a recheck, further evaluation and treatment. OARRS was reviewed. Prescriptions were provided for Zanaflex and norco. He was accompanied by family. Medical Records Attestation: I reviewed the patient's medical records. Imaging Data XR and CT: Attestation: I have reviewed the pertinent imaging results. Radiologist's impression: ITS Impressions Abdomen/Pelvis CT 12/28/24 13:46 IMPRESSION: No acute findings involving the chest, abdomen, pelvis, lumbar spine or left hip. Impression dictated by: Derick Quiñones Jr., D.O. 12/28/2024 4:35 PM Dictation Location: [facility] Electronically authenticated by: [id number] Y Date: 12/28/2024 16:[address] 12/28/24 13:46 IMPRESSION: NO CERVICAL SPINE FRACTURE Impression dictated by: Derick Quiñones Jr., D.O. 12/28/2024 3:26 PM Dictation Location: [facility] Electronically authenticated by: [id number] Y Date: 12/28/2024 15:[address] 12/28/24 13:46 IMPRESSION: NO ACUTE INTRACRANIAL ABNORMALITY. Impression dictated by: Derick Quiñones Jr., D.O. 12/28/2024 3:21 PM Dictation Location: [facility] Electronically authenticated by: [id number] Y Date: 12/28/2024 15:[address] 12/28/24 13:46 IMPRESSION: No acute findings involving the chest, abdomen, pelvis, lumbar spine or left hip. Impression dictated by: Derick Quiñones Jr., D.O. 12/28/2024 4:35 PM Dictation Location: [facility] Electronically authenticated by: [id number] Y Date: 12/28/2024 16:[address] 12/28/24 13:46 IMPRESSION: No acute findings involving the chest, abdomen, pelvis, lumbar spine or left hip. Impression dictated by: Derick Quiñones Jr., D.O. 12/28/2024 4:35 PM Dictation Location: [facility] Electronically authenticated by: [id number] Y Date: 12/28/2024 16:35 Shoulder X-Ray 12/28/24 13:46 IMPRESSION: QUESTIONABLE CHIP FRACTURE ALONG THE SUPERIOR GLENOID POSSIBLY REMOTE. Impression dictated by: Derick Quiñones Jr., D.O. 12/28/2024 4:39 PM Dictation Location: [facility] Electronically authenticated by: [id number] Y Date: 12/28/2024 16:[address] 12/28/24 13:46 IMPRESSION: NO ACUTE FRACTURE. Impression dictated by: Derick Quiñones Jr., D.O. 12/28/2024 3:29 PM Dictation Location: [facility] Electronically authenticated by: [id number] Y Date: 12/28/2024 15:29 Wrist X-Ray 12/28/24 17:43 IMPRESSION: NO ACUTE BONY PROCESS. Impression dictated by: Derick Quiñones Jr., D.O. 12/28/2024 6:11 PM Dictation Location: [facility] Electronically authenticated by: [id number] Y Date: 12/28/2024 18:11 Discharge Plan Discharge Chief Complaint: Fall Clinical Impression: Fall, Head injury, Back pain, Acute hip pain, Right wrist sprain, Injury of shoulder, right, Abnormal x-ray of shoulder Patient Disposition: Home, Self-Care Time of Disposition Decision: 18:18 Condition: Good Mode of Transportation: Private Vehicle Prescriptions / Home Meds: New hydrocodone-acetaminophen 5-325 mg tablet 1 tab PO Q8H PRN (Reason: pain) 4 Days Qty: 12 0RF tizanidine [Zanaflex] 2 mg capsule 2 mg PO Q8H PRN (Reason: muscle spasticity) Qty: 12 0RF No Action celecoxib 200 mg capsule 200 mg PO Q12H gabapentin 300 mg capsule 300 mg PO TID Rx Instructions: MAY ADD TO 600 MG CAP losartan 50 mg tablet 50 mg PO DAILY pantoprazole 40 mg tablet,delayed release (DR/EC) 40 mg PO .ACB Cosentyx Pen (2 Pens) 150 mg/mL pen injector 300 mg SUBCUT .[id number] Print Language: Emirati Instructions: Sprain (ED), Head Injury (ED), Back Pain (ED), Hip Pain (ED) Additional Instructions: Return to the ER for worsening symptoms. Referrals: KHLOE ASTUDILLO [Primary Care Provider, Family Practice] - 1 week Zak Hernández MD [Physician, Orthopedics] - 1 week
[2024-12-28] MEDS: ONDANSETRON 4 MG RAPDIS TABLET SL (14:36)
[2024-12-28] MEDS: MORPHINE SULFATE 4 MG/ML VIAL IM (14:37)
--- NOTE | 2024-12-28 14:52 | PC.NURSE ---
1420- pt refusing any more IV pokes. this RN poked twice with no luck. 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
[2024-12-28] MEDS: DIPHTH,PERTUSS(ACELL),TET VAC 0.5 ML SYRINGE IM (16:12)
[2024-12-28] MEDS: ORPHENADRINE 60 MG/2 ML VIAL IM (16:41)
[2024-12-28] MEDS: HYDROMORPHONE HCL 1 MG/ML CARTRIDGE IM (16:41)
--- NOTE | 2024-12-28 17:43 | XR_ITS ---
The [place] [id number] Patient Name: MARLENY PATRICK MRN: [id number] date: 1970 Sex: M Assigned Patient Location: ER Current Patient Location: ER Accession/Order Number: [id number] Exam Date: 12/28/2024 17:58 Report Date: 12/28/2024 18:11 At the request of: SONIDO CAMARENA Procedure: XR wrist RT min 3V RIGHT WRIST - 3 views CLINICAL HISTORY: pain, fall COMPARISON: None FINDINGS: No focal soft tissue abnormality or acute bony process. Joint spaces appear maintained. No bony erosions. XR/XR wrist RT min 3V IMPRESSION: NO ACUTE BONY PROCESS. Impression dictated by: Derick Quiñones Jr., D.O. 12/28/2024 6:11 PM Dictation Location: [place] [address] Electronically authenticated by: [id number] Y Date: 12/28/2024 18:11
== END 2024-12-28 18:40 | disposition home or self-care (01) ==
PROVIDERS: Emergency Provider Emergency Medicine; Family Provider Family Medicine; PCP Family Medicine
DX: M54.50 Low back pain, unspecified (principal); S09.90XA Unspecified injury of head, initial encounter; W11.XXXA Fall on and from ladder, initial encounter; S63.501A Unspecified sprain of right wrist, initial encounter; S49.91XA Unspecified injury of right shoulder and upper arm, initial encounter; R93.6 Abnormal findings on diagnostic imaging of limbs; M25.552 Pain in left hip; Z23 Encounter for immunization
CPT/HCPCS: 70450; 71250; 72125; 72128; 72131; 73030; 73110; 73700; 74176; 90471; 90715; 96372; 99285; J1171; J2270; J2360; Q0162

== ENCOUNTER 2025-01-29 14:09 | Outpatient (RCR) | payer OTHER, SELFPAY | END 2025-02-12 11:42 | disposition home or self-care (01) | LOC: PT 14:09 | PROVIDERS: Family Provider Family Medicine; PCP Family Medicine | DX: M54.50 Low back pain, unspecified (principal) | CPT/HCPCS: 97110; 97161 ==